=== PATIENT | male | born 1985 | race Caucasian/White ===

== ENCOUNTER 2016-12-22 20:11 | Emergency (ER) | payer OTHER ==
[2016-12-22] MEDS ORDERED: ACETAMINOPHEN TAB 325 MG TAB PO STA (20:33)
[2016-12-22] MEDS ORDERED: SODIUM CHLORIDE 0.9% 1,000 ML IV STA ×2 (20:33)
--- NOTE | 2016-12-22 20:37 | ED ---
General Adult HPI - General Source: patient, family, RN notes reviewed Mode of arrival: ambulatory Limitations: no limitations <Jimmy Jj - Last Filed: 12/22/16 20:34> <Mark Britt - Last Filed: 12/22/16 22:05> - General Chief complaint: Fever Stated complaint: Fever/101.5 Time Seen by Provider: 12/22/16 20:23 - History of Present Illness Initial comments: If complaint and history of present illness is a 31-year-old male to complaint of muscle aches and pains fever productive cough for 2 days. He also reports his urines dark in color. Luis took 6 tablets from his mother of cephalexin 500. States he still doesn 't feel well. His mother was cautioned about giving medications others plus not finishing her own medication and he was cautioned about taking medications from others that don't belong to him. Tension for adverse reaction discussed. ( Jimmy Jj) - Related Data Home Medications Medication Instructions Recorded Confirmed Acetaminophen Tab [Tylenol Tab] 650 mg PO Q6H PRN 12/22/16 12/22/16 Aspirin Unknown Dose 1 tab PO DAILY PRN 12/22/16 12/22/16 Cephalexin [Keflex] 500 mg PO Q6H 12/22/16 12/22/16 Naproxen Sodium [Aleve] 220 mg PO Q12H PRN 12/22/16 12/22/16 Previous Rx's Medication Instructions Recorded Azithromycin [Zithromax Z-pack] 250 mg PO DIRECTED #6 tab 12/22/16 Allergies Allergy/AdvReac Type Severity Reaction Status Date / Time No Known Allergies Allergy Verified 12/22/16 20:24 Review of Systems ROS Other: All systems not noted in ROS Statement are negative. <Jimmy Jj - Last Filed: 12/22/16 20:34> ROS Other: All systems not noted in ROS Statement are negative. <Mark Britt - Last Filed: 12/22/16 22:05> ROS Statement: Those systems with pertinent positive or pertinent negative responses have been documented in the HPI. Review of systems mild headache no visual acuity changes mild sore throat no stiff neck. Productive cough. Nausea no vomiting. Decreased appetite decreased fluid intake. No rashes. Muscle aches and pains. No neuro deficits. All systems reviewed. Past medical problems none. Surgeries none. Family history his father. Patient has no ALLERGIES nonsmoker nondrinker. (Jimmy Jj) Past Medical History Past Medical History: No Reported History History of Any Multi-Drug Resistant Organisms: None Reported Past Surgical History: No Surgical Hx Reported Past Psychological History: No Psychological Hx Reported Smoking Status: Never smoker Past Alcohol Use History: None Reported Past Drug Use History: None Reported <Jimmy Jj - Last Filed: 12/22/16 20:34> General Exam Limitations: no limitations <Jimmy Jj - Last Filed: 12/22/16 20:34> <Mark Britt - Last Filed: 12/22/16 22:05> - General Exam Comments Initial Comments: General: The patient is awake and alert, playing of not feeling well. Muscle aches and pains. Fever of 101 at home. 99 here. Productive cough. Dark urine. Vital signs temperature 99.0 pulse 98 her story rate 20 pulse ox 90% room air blood pressure 117/71 Eye: Pupils are equal, round and reactive to light, extra-ocular movements are intact ; there is normal conjunctiva bilaterally. No signs of icterus. Ears, nose, mouth and throat: There are moist mucous membranes and no oral lesions. Neck: The neck is supple, there is no tenderness Cardiovascular: There is a regular rate and rhythm. No murmur, rub or gallop is appreciated. Respiratory: Lungs are clear to auscultation, respirations are non-labored, breath sounds are equal. No wheezes, stridor, rales, or rhonchi. Gastrointestinal: Soft, non-distended, non-tender abdomen without masses or organomegaly noted. There is no rebound or guarding present. No CVA tenderness. Bowel sounds are unremarkable. Back: There is no tenderness to palpation in the midline. There is no obvious deformity. No rashes noted. Musculoskeletal: Normal ROM, no tenderness, Neurological: No neuro deficits appreciated. No complaint of any focal or lateralizing issues. Skin: Skin is warm and dry and no rashes or lesions are noted. (Jimmy Jj) Medical Decision Making - Lab Data Result diagrams: 12/22/16 21:01 12/22/16 21:01 <Mark Britt - Last Filed: 12/22/16 22:05> - Lab Data Lab Results 12/22/16 12/22/16 12/22/16 Range/Units 21:01 21:01 21:40 WBC 6.3 (3.8-10.6) k/uL RBC 4.45 (4.30-5.90) m/uL Hgb 13.7 (13.0-17.5) gm/dL Hct 39.3 (39.0-53.0) % MCV 88.3 (80.0-100.0) fL MCH 30.9 (25.0-35.0) pg MCHC 35.0 (31.0-37.0) g/dL RDW 13.0 (11.5-15.5) % Plt Count 149 L (150-450) k/uL Neutrophils % 66 % Lymphocytes % 20 % Monocytes % 8 % Eosinophils % 1 % Basophils % 2 % Neutrophils # 4.2 (1.3-7.7) k/uL Lymphocytes # 1.3 (1.0-4.8) k/uL Monocytes # 0.5 (0-1.0) k/uL Eosinophils # 0.0 (0-0.7) k/uL Basophils # 0.1 (0-0.2) k/uL Sodium 137 (137-145) mmol/L Potassium 4.0 (3.5-5.1) mmol/L Chloride 97 L (98-107) mmol/L Carbon Dioxide 29 (22-30) mmol/L Anion Gap 11 mmol/L BUN 27 H (9-20) mg/dL Creatinine 1.50 H (0.66-1.25) mg/dL Est GFR (MDRD) Af Amer >60 (>60 ml/min/1.73 sqM) Est GFR (MDRD) Non-Af 54 (>60 ml/min/1.73 sqM) Glucose 94 (74-99) mg/dL Calcium 9.2 (8.4-10.2) mg/dL Total Bilirubin 0.7 (0.2-1.3) mg/dL AST 72 H (17-59) U/L ALT 46 (21-72) U/L Alkaline Phosphatase 68 (38-126) U/L Total Protein 7.3 (6.3-8.2) g/dL Albumin 3.8 (3.5-5.0) g/dL Urine Color Yellow Urine Appearance Clear (Clear) Urine pH 6.0 (5.0-8.0) Ur Specific [place] 1.027 (1.001-1.035) Urine Protein 1+ H (Negative) Urine Glucose (UA) Negative (Negative) Urine Ketones Negative (Negative) Urine Blood Negative (Negative) Urine Nitrite Negative (Negative) Urine Bilirubin Negative (Negative) Urine Urobilinogen 2.0 (<2.0) mg/dL Ur Leukocyte Esterase Negative (Negative) Urine RBC 1 (0-5) /hpf Urine WBC 5 (0-5) /hpf Hyaline Casts 9 H (0-2) /lpf Urine Mucus Few H (None) /hpf Disposition <Jimmy Jj - Last Filed: 12/22/16 20:34> <Mark Britt - Last Filed: 12/22/16 22:05> Clinical Impression: Bronchitis Disposition: HOME SELF-CARE Condition: Fair Instructions: Acute Bronchitis (ED) Additional Instructions: Follow up with the physician to have your urine rechecked and for the culture results. Prescriptions: Azithromycin [Zithromax Z-pack] 250 mg PO DIRECTED #6 tab Referrals: None,Stated [Primary Care Provider] - 1-2 days Ashvin Norman MD [STAFF PHYSICIAN] - 1-2 days
[2016-12-22 21:15] LABS: Basophils # (A) 0.1 k/uL (0-0.2); Basophils % (A) 2 %; CHCM 35.2; Eosinophils % (A) 1 %; HCT 39.3 % (39.0-53.0); HDW 2.94; HGB 13.7 gm/dL (13.0-17.5); Luc # (Auto) 0.14; Luc % (Auto) 2; Lymphocytes # (A) 1.3 k/uL (1.0-4.8); Lymphocytes % (A) 20 %; MCH 30.9 pg (25.0-35.0); MCV 88.3 fL (80.0-100.0); Mean Platelet Volume 7.6; Monocytes # (A) 0.5 k/uL (0-1.0); Monocytes % (A) 8 %; Neutrophils # (A) 4.2 k/uL (1.3-7.7); Neutrophils % (A) 66 %; RBC 4.45 m/uL (4.30-5.90); WBC 6.3 k/uL (3.8-10.6); WBC (Perox) 6.11
[2016-12-22 21:24] LABS: ALT 46 U/L (21-72); AST 72 U/L (17-59); Alkaline Phosphatase 68 U/L (38-126); Anion Gap 11 mmol/L; Blood Urea Nitrogen 27 mg/dL (9-20); Calcium 9.2 mg/dL (8.4-10.2); Carbon Dioxide 29 mmol/L (22-30); Chloride 97 mmol/L (98-107); Glucose 94 mg/dL (74-99); Non-African American GFR(MDRD) 54 (>60 ml/min/1.73 sqM); Sodium 137 mmol/L (137-145); Total Bilirubin 0.7 mg/dL (0.2-1.3); Total Protein 7.3 g/dL (6.3-8.2)
--- NOTE | 2016-12-22 21:24 | XR ---
EXAMINATION TYPE: XR chest 2V DATE OF EXAM: 12/22/2016 9:16 PM COMPARISON: NONE HISTORY: Productive cough TECHNIQUE: Frontal and lateral views of the chest are obtained. FINDINGS: Parahilar peribronchial cuffing is seen. Increased reticular markings bilaterally are note d. There is slightly more suspicious focal opacity in the posterior lower lung on lateral view. No pl eural effusion or pneumothorax is seen bilaterally. The cardiac silhouette size is within normal craft its. The osseous structures are intact. IMPRESSION: Interstitial changes may be chronic, consider a viral bronchiolitis with increased centra l markings bilaterally. Possible developing acute infiltrate in the posterior lower lung. Consider pr ogress study.
[2016-12-22 21:48] LABS: Appearance,Urine Clear (Clear); Bilirubin,Urine Negative (Negative); Glucose,Urine (UA) Negative (Negative); Ketones,Urine Negative (Negative); Leukocyte Esterase,Urine Negative (Negative); Mucus,Urine Few /hpf; Nitrite,Urine Negative (Negative); Particle Count 7973; Protein,Urine 1+ (Negative); RBC,Urine 1 /hpf (0-5); Specific Gravity,Urine 1.027 (1.001-1.035); UA Billing (MACRO vs. MICRO) MICRO; WBC,Urine 5 /hpf (0-5)
[2016-12-22] MEDS ORDERED: AZITHROMYCIN 500 MG TAB PO STA (22:06)
[2016-12-22 22:14] VITALS: BP 123/56; PULSE 77; RESP 18; TEMP 98.2
== END 2016-12-22 22:25 | disposition home or self-care (01) ==
LOC: EC 20:11
DX: J40 Bronchitis, not specified as acute or chronic (principal)
CPT/HCPCS: 36415; 71020; 80053; 81001; 85025; 87086; 87502; 96360; 99283

== ENCOUNTER → 2017-11-27 | Outpatient (CLI) | payer OTHER ==
--- NOTE | 2017-11-27 17:58 | XR ---
EXAMINATION: XR chest 2V DATE AND TIME: 11/27/2017 5:41 PM ORDERING PROVIDER: Melo Cordero DO CLINICAL INDICATION: J68.9 respiratory condition due to chemicals, gase TECHNIQUE: PA and lateral COMPARISON: 12/22/2016 DESCRIPTION: The lungs are clear. The pleural spaces are negative. The cardiac silhouette is not enlarged. The mediastinal and pleural silhouettes are unremarkable. The skeletal structures are intact without focal findings. The soft tissues are unremarkable. IMPRESSION: NO ACUTE RADIOGRAPHIC PROCESS.
== END | disposition home or self-care (01) ==
LOC: RADXRMAIN 17:27
PROVIDERS: ATTEND Emergency Medicine
DX: J68.9 Unspecified respiratory condition due to chemicals, gases, fumes and vapors (principal)
CPT/HCPCS: 71046

== ENCOUNTER → 2019-02-24 | Outpatient (CLI) | payer OTHER ==
--- NOTE | 2019-02-24 14:49 | XR ---
Right hand HISTORY: Trauma and pain 3 views of the right hand Bone mineralization, joint spaces and alignment are maintained. Soft tissue swelling noted at the fir st digit. IMPRESSION: No fracture or dislocation.
== END | disposition home or self-care (01) ==
LOC: RADXRMAIN 14:17
PROVIDERS: ATTEND Emergency Medicine
DX: S60.221A Contusion of right hand, initial encounter (principal)

== ENCOUNTER → 2022-09-11 | Outpatient (CLI) | payer OTHER ==
--- NOTE | 2022-09-11 12:21 | CT ---
EXAMINATION TYPE: CT brain cspine wo con CT DLP: 507.4 mGycm, Automated exposure control for dose reduction was used. DATE OF EXAM: 09/11/2022 12:15 PM COMPARISON: None.. CLINICAL INDICATION:Male, 37 years old with history of S00.83XA contusion head, S13.4XXA sprain, S30. 0XXA; fall, right side head/neck pain TECHNIQUE: Brain: Multiple axial CT images of the brain were obtained without IV contrast. Cspine: Axial CT images from the skull base to the inferior aspect of T2 we obtained without intraven ous contrast. Coronal and sagittal reformatted images were also reviewed. FINDINGS: Brain: Extra-axial spaces: No abnormal extra-axial fluid collections. Ventricular system: Within normal limits Cerebral parenchyma: No acute intraparenchymal hemorrhage or mass effect. The malloy-white junction is well differentiated. Cerebellum: Unremarkable. Mass effect: No evidence of midline shift. Intracranial vasculature: unremarkable Soft tissues: Normal. Calvarium/osseous structures: No depressed skull fracture. Paranasal sinuses and mastoid air cells: Clear. Visualized orbits: Orbital contents are intact. Cervical spine: Fracture: None. Osseous structures: Unremarkable Vertebral alignment: Within normal limits. Spinal canal/Neural Foramina: No evidence of significant spinal canal narrowing. No evidence for sign ificant neural foraminal stenosis. Neck soft tissues: Prevertebral soft tissues are within normal limits. Other: The airway is patent. The lung apices are clear. IMPRESSION: 1. No acute intracranial process. 2. No evidence of cervical spine fracture.
--- NOTE | 2022-09-11 12:28 | XR ---
EXAMINATION TYPE: XR lumbar spine 2 or 3V DATE OF EXAM: 09/11/2022 Comparison: None Clinical History: 37-year-old male S00.83XA contusion head, S13.4XXA sprain, S30.0XXA Findings: 5 lumbar type vertebral bodies. Possible L5 pars defects versus summation artifact. Vertebral body he ights are preserved and alignment is maintained. Impression: Bilateral L5 pars defects. No vertebral compression collapse or malalignment.
== END | disposition home or self-care (01) ==
LOC: RADCTMAIN 11:42
PROVIDERS: ATTEND Emergency Medicine
DX: S00.83XA Contusion of other part of head, initial encounter (principal); S13.4XXA Sprain of ligaments of cervical spine, initial encounter; S30.0XXA Contusion of lower back and pelvis, initial encounter
CPT/HCPCS: 70450; 72100; 72125